=== PATIENT | female | born 1985 | race Caucasian/White ===

== ENCOUNTER 2017-11-07 19:32 | Emergency (ER) | payer BC, OTHER ==
[~2017-11-07] VITALS: Ht 165.1 cm; Wt 72.6 kg
[~2017-11-07 19:32] MED LIST: BACTRIM DS TAB1 EACH PO; GLUCOPHAGE XR750 MG PO; IBUPROFEN 600600 M1 PO; LEVOTHYROXINE0.05 MG PO; NORCO 5-325 TA1 EACH PO; SYNTHROID25 MCG PO; ZPAK PO
[2017-11-07 19:35] VITALS: BP 129/76
[2017-11-07] MEDS ORDERED: ARMOUR THYROID30 M1 PO (19:38)
[2017-11-07] MEDS ORDERED: SYNTHROID75 MCG PO (19:38)
[2017-11-07] MEDS ORDERED: NORCO 5-325 TA1 EACH PO (20:33)
== END 2017-11-07 21:11 | disposition home or self-care (01) ==
LOC: ER 19:32
DX: M79.644 Pain in right finger(s) (principal); M79.89 Other specified soft tissue disorders; E03.9 Hypothyroidism, unspecified

== ENCOUNTER 2020-07-08 21:50 | Emergency (ER) | payer OTHER ==
[~2020-07-08] VITALS: Ht 165.1 cm; Wt 81.7 kg
[~2020-07-08 21:50] MED LIST changes: +ARMOUR THYROID30 M1 PO; +SYNTHROID75 MCG PO
[2020-07-08 22:28] LABS: ABSOLUTE NEUTROPHILS 6.2 thou/uL (1.4-8.2); BASOPHILS 0.6 % (0.0-2.0); HEMATOCRIT 36.2 % (37.0-47.0); HEMOGLOBIN 11.8 gm/dL (12.0-15.0); LYMPHOCYTES 36.5 % (24.0-44.0); MCH 28.1 pg (26.0-34.0); MCHC 32.6 g/dL (28.0-37.0); MCV 86.3 fL (80.0-100.0); MONOCYTES 6.3 % (1.0-8.0); PLATELET COUNT 544 thou/uL (150-400); POLYS 53.6 % (36.0-66.0); RDW 13.1 % (10.5-14.5); WBC 11.5 thou/uL (4.0-11.0)
[2020-07-08 22:40] LABS: ANION GAP 11 mmol/L (7-16); BUN 10 mg/dL (7-18); CALCIUM 8.8 mg/dL (8.5-10.1); CHLORIDE 105 mmol/L (98-107); CO2 25 mmol/L (21-32); CREATININE 0.7 mg/dL (0.6-1.0); GLUCOSE 114 mg/dL (74-106); POTASSIUM 4.1 mmol/L (3.5-5.1); SODIUM 141 mmol/L (136-145)
[2020-07-08 22:48] LABS: MAGNESIUM 1.8 mg/dL (1.8-2.4); TROPONIN-I <0.06 ng/mL (<0.06)
[2020-07-08 22:50] LABS: URINE BILIRUBIN NEGATIVE (Negative); URINE BLOOD NEGATIVE (Negative); URINE CLARITY CLEAR; URINE COLOR YELLOW; URINE GLUCOSE-RANDOM* NEGATIVE (Negative); URINE KETONES NEGATIVE (Negative); URINE LEUKOCYTES-REFLEX NEGATIVE (Negative); URINE NITRITE-REFLEX NEGATIVE (Negative); URINE PROTEIN (DIPSTICK) NEGATIVE (Negative); URINE SPECIFIC GRAVITY >= 1.030 (1.005-1.035); URINE UROBILINOGEN 0.2 E.U./dl (0.2-1.0)
[2020-07-09 02:29] VITALS: BP 135/89
--- NOTE | 2020-07-09 07:16 | EKG ---
[address] [address] ELECTROCARDIOGRAM REPORT Name: PATTI MOSLEY [id number] Admission: 07/08/20 Attend Phys: Discharge: 07/09/20 Date of : 87 Report #: [id number] [facility] ED Test Date: 2020-07-08 Test Time: 22:07:36 Pat Name: PATTI MOSLEY Department: Room: Gender: F Supervisor Vacuum Metalizing: ELENA : 1985 Requested By: Gertrude Lott Order Number: [id number] MD: Malik Salas Measurements Intervals [place] Rate: 89 P: 32 IN: 143 QRS: 32 QRSD: 83 T: 12 QT: 357 QTc: 435 Interpretive Statements Sinus rhythm No previous ECG available for comparison Electronically Signed On 07-09-2020 7:16:04 VERTICAL ROLL OPERATOR by Malik Salas [email or web address] <ELECTRONICALLY SIGNED> By: Malik Salas MD, [facility] 07/09/20 0716 2207 06 Malik Salas MD, FACC /EPI
== END 2020-07-09 02:30 | disposition home or self-care (01) ==
LOC: ER 21:50
PROVIDERS: Emergency Medicine
DX: R00.2 Palpitations (principal); M79.602 Pain in left arm; E03.9 Hypothyroidism, unspecified; E11.9 Type 2 diabetes mellitus without complications; Z79.899 Other long term (current) drug therapy

== ENCOUNTER 2021-05-15 18:18 | Inpatient (IN) | payer OTHER ==
[~2021-05-15] VITALS: Ht 165.1 cm; Wt 74.8 kg
[2021-05-15 18:27] VITALS: BP 145/77
--- NOTE | 2021-05-15 18:27 | NUR ---
pt's mom is inpatient ER 14, pt gave permission to talk to her mother about condition and results
[2021-05-15 19:38] LABS: ABSOLUTE NEUTROPHILS 3.9 thou/uL (1.4-8.2); BASOPHILS 0.1 % (0.0-2.0); HEMATOCRIT 35.4 % (37.0-47.0); HEMOGLOBIN 11.5 gm/dL (12.0-15.0); LYMPHOCYTES 23.3 % (24.0-44.0); MCH 28.2 pg (26.0-34.0); MCHC 32.6 g/dL (28.0-37.0); MCV 86.7 fL (80.0-100.0); MONOCYTES 10.5 % (1.0-8.0); PLATELET COUNT 426 thou/uL (150-400); POLYS 66.1 % (36.0-66.0); RBC 4.08 mil/uL (4.20-5.00); RDW 13.7 % (10.5-14.5)
[2021-05-15 19:47] LABS: ANION GAP 11 mmol/L (7-16); BUN 7 mg/dL (7-18); CALCIUM 8.6 mg/dL (8.5-10.1); CHLORIDE 103 mmol/L (98-107); CO2 27 mmol/L (21-32); CREATININE 0.7 mg/dL (0.6-1.0); GLUCOSE 102 mg/dL (74-106); POTASSIUM 3.7 mmol/L (3.5-5.1); SODIUM 141 mmol/L (136-145)
[2021-05-15 19:53] LABS: ALBUMIN 3.4 g/dL (3.4-5.0); DIRECT BILIRUBIN < 0.1 mg/dL (<0.1-0.2); LIPASE 188 U/L (73-393); SGOT 32 U/L (15-37); SGPT 29 U/L (30-65); TOTAL BILIRUBIN 0.4 mg/dL (0.2-1.0)
[2021-05-16 05:24] LABS: HEMATOCRIT 29.5 % (37.0-47.0); HEMOGLOBIN 10.1 gm/dL (12.0-15.0); MCH 30.6 pg (26.0-34.0); MCHC 34.1 g/dL (28.0-37.0); MCV 89.8 fL (80.0-100.0); RBC 3.29 mil/uL (4.20-5.00); RDW 14.4 % (10.5-14.5); WBC 5.8 thou/uL (4.0-11.0)
[2021-05-16 05:29] LABS: CALCIUM 8.1 mg/dL (8.5-10.1); CREATININE 0.5 mg/dL (0.6-1.0); POTASSIUM 3.4 mmol/L (3.5-5.1)
--- NOTE | 2021-05-16 07:39 | EKG ---
[address] [address] ELECTROCARDIOGRAM REPORT Name: PATTI MOSLEY. Room #: 170-6 ADM IN M.R.#: [id number] Admission: 05/15/21 Attend Phys: Sen Jenkins MD Discharge: Date of : 87 Report #: [id number] [facility] ED Test Date: 2021-05-15 Test Time: 18:29:10 Pat Name: VIKTORIYA. MOSLEY Department: Room: 170 Gender: F Sales Compensation Analyst: RENE : 1985 Requested By: Goran Santillan Order Number: [id number] MD: Malik Salas Measurements Intervals [place] Rate: 97 P: 46 [place]: 143 QRS: 10 QRSD: 90 T: 11 QT: 348 QTc: 442 Interpretive Statements Sinus rhythm Borderline T abnormalities, anterior leads Compared to ECG 07/08/2020 22:07:36 T-wave abnormality now present Electronically Signed On 05-16-2021 7:39:23 TRUCK SERVICE TECHNICIAN by Malik Salas [email or web address] <ELECTRONICALLY SIGNED> By: Malik Salas MD, [facility] 05/16/21 0739 28 28 Malik Salas MD, [facility] /EPI
--- NOTE | 2021-05-16 17:11 | NUR ---
35 year old female presents to the ED on 05/15/21 with SOA and centralized chest pain. The patient also reports coughing with diarrhea, dry heaving and fever between 100-102. The patient was diagnosed with Covid-19 on 05/09/21 and reports being unvaccinated. The patient was admitted for COVID-19 infection complicated by pneumonitis respiratory failure/diabetes mellitus type 2/hypothyroidism we will continue approach as prescribed empiric therapy with Levaquin as well as directed therapy with Remdesiver corticosteroids and vitamins. Presently the patient is on 4 liters per NC. Per the record the patient is currently living at home and working fulltime and reportedly independent for all ADLS. Note: the patient lists her mother as her next of kin and contact who too is hospitalized in room 170-14 and number of [phone]. As care progresses PT/OT orders will need to be obtained and CM will follow for discharge needs as patient had been independent and working prior to admission.
[2021-05-16 21:45] VITALS: BP 118/68
[2021-05-17 04:04] VITALS: BP 124/78
--- NOTE | 2021-05-17 08:09 | HC ---
[facility] [place] [address] CONSULTATION Name: PATTI MOSLEY Room #: 170-17 ADM IN M.R.#: [id number] Admission: 05/15/21 Attend Phys: Flora Pickett Discharge: Date of : 87 Report #: [id number] THIS REPORT FOR: cc: Shun Abdul MD, Neal A. MD Barry,Andrez Martinez MD ~ DATE OF SERVICE: 05/16/2021 INFECTIOUS DISEASE CONSULTATION ATTENDING PHYSICIAN: Dr. Jenkins REASON FOR EVALUATION: COVID-19 infection, complicated by pneumonitis and respiratory failure. HISTORY OF PRESENT ILLNESS: Chart reviewed, the patient examined. A 35-year-old woman with known history of diabetes mellitus type 2, actually diagnosed in 2010; also hypothyroidism, who has been ill over the course of the last 10 days, generalized myalgias and fevers. Subsequently developed a nonproductive cough and progressive dyspnea over the last 48 hours prior to her evaluation. She had some GI-related complaints with diarrhea, had been diagnosed with COVID-19 infection. She is currently on supplemental oxygen 4 liters, feeling much better, although initially found to be hypoxic. Chest x-ray does show bilateral infiltrates. Coronavirus was confirmed to be positive. Procalcitonin less than 0.05. Sed rate of 3. Ferritin elevated at 361. TSH of 0.823. ALLERGIES: None known. CURRENT MEDICATIONS: Include enoxaparin, furosemide, levofloxacin, metformin XR, zinc sulfate, ascorbic acid, dexamethasone, levothyroxine, albuterol inhaler, p.r.n. analgesics and received remdesivir as well. PAST MEDICAL HISTORY: As described above, diabetes mellitus type 2 diagnosed roughly 10 years ago. Also, hypothyroidism. SOCIAL HISTORY: No ethanol, tobacco or illicit drug use. FAMILY HISTORY: Noncontributory. REVIEW OF SYSTEMS: Otherwise unremarkable. PHYSICAL EXAMINATION: GENERAL: Alert, cooperative, moderate distress, generally lucid. VITAL SIGNS: Temperature earlier 99.4, pulse 97, respirations 22, blood pressure 122/72. [facility] [address] [place] [address] CONSULTATION Name: PATTI MOSLEY Room #: 170-17 [facility] IN ..#: [id number] Admission: 05/15/21 Attend Phys: Flora Pickett Discharge: Date of : 87 Report #: [id number] SKIN: Warm, dry, no rashes. HEENT: Normocephalic. Extraocular muscles intact. Nasal cannula in place. NECK: Supple. LUNGS: A few scattered coarse breath sounds. HEART: Regular, borderline tachycardic. I do not appreciate a murmur. ABDOMEN: Mildly distended, somewhat firm, nontender. EXTREMITIES: No cyanosis. GENITOURINARY AND RECTAL: Deferred. LABORATORY DATA: CBC: White count 5.8, H and H 10.1 and 29.5, platelets of 384. TSH 0.823. Ferritin 361. Sed rate of 3. Electrolytes: Sodium 141, potassium 3.7, chloride 103, bicarbonate is 27, anion gap of 11, BUN and creatinine 7 and 0.7, glucose of 102. Lipase of 188, AST of 32. ASSESSMENT AND PLAN: COVID-19 infection, complicated by pneumonitis and respiratory failure in the setting of diabetes mellitus type 2 and hypothyroidism. We will continue empiric therapy as prescribed with antibacterial ____ for possible secondary bacterial pneumonitis as well as directed therapy with remdesivir, dexamethasone, baricitinib as well. Remains somewhat tenuous at this point, although her young age certainly is in her favor. Continue supportive care with oxygen therapy as required. <ELECTRONICALLY SIGNED> By: Andrez Gallardo MD 05/17/21 0809 [id number] [id number] Andrez Gallardo MD /nt
[2021-05-17 10:29] VITALS: BP 128/75
[2021-05-17 16:42] VITALS: BP 122/70
[2021-05-17 17:17] VITALS: BP 122/70
[2021-05-17 17:30] VITALS: BP 130/71
[2021-05-17 19:15] VITALS: BP 112/76
--- NOTE | 2021-05-17 19:35 | NUR ---
ADMISSION NOTE: PT ADMITTED TO ROOM 349, ALERT AND ORIENTED X4, DENIES ANY PAIN. PRINCIPAL EMBEDDED SOFTWARE ENGINEER PLACED, SINUS RHYTHM. ASSESSMENT AND ADMISSION COMPLETED. ON 5L OXYGEN, SOB WITH EXERTION, PRODUCTIVE COUGH, SMALL SPUTUM. ORIENTED TO ROOM. SKIN INTACT. UP TO BSC INDEPENENTLY. DENIES ANY NEEDS LURDES.
[2021-05-18 03:21] LABS: ABSOLUTE NEUTROPHILS 8.5 thou/uL (1.4-8.2); BASOPHILS 0.4 % (0.0-2.0); HEMATOCRIT 33.3 % (37.0-47.0); HEMOGLOBIN 11.2 gm/dL (12.0-15.0); LYMPHOCYTES 14.7 % (24.0-44.0); MCH 29.4 pg (26.0-34.0); MCHC 33.5 g/dL (28.0-37.0); MCV 87.8 fL (80.0-100.0); MONOCYTES 5.5 % (1.0-8.0); POLYS 79.4 % (36.0-66.0); WBC 10.7 thou/uL (4.0-11.0)
[2021-05-18 03:30] VITALS: BP 130/78
[2021-05-18 03:30] LABS: PLATELET COUNT 619 thou/uL (150-400)
--- NOTE | 2021-05-18 05:26 | NUR ---
VSS OVERNIGHT. PT HAS NO COMPLAINTS OF P/N/V. AFEBRILE. PT UP TO BSC WITH OXYGEN. CALL LIGHT WITHIN REACH. FOLLOWING COVID POC.
[2021-05-18 05:37] LABS: CALCIUM 8.9 mg/dL (8.5-10.1); CREATININE 0.7 mg/dL (0.6-1.0); DIRECT BILIRUBIN 0.1 mg/dL (<0.1-0.2); PHOSPHORUS 4.4 mg/dL (2.5-4.9); POTASSIUM 4.3 mmol/L (3.5-5.1); TOTAL BILIRUBIN 0.6 mg/dL (0.2-1.0); TOTAL PROTEIN 6.8 g/dL (6.4-8.2)
[2021-05-18 07:07] VITALS: BP 124/76
[2021-05-18 11:10] VITALS: BP 118/65
--- NOTE | 2021-05-18 13:36 | NUR ---
Received consult. ANIBAL reviewed chart and spoke with nursing and attending physician. Pt was brought to 3W from the ER last evening. Pt remains in Enhanced Isolation due to COVID. Pt is afebrile and on 6L of O2. Pt is on IV meds and Remdesivir. ANIBAL spoke with pt via phone. Introduced role of SW. Pt is alert/orientated x 4. Pt reports she lives at home with her family, who all have COVID. Pt's mother is also currently hospitalized at [facility]. Prior to admission, pt was independent with ADLs. No use of DME. No hx of HH or post-acute placement. Pt's PCP is Dr. Helena Tran. Pt is employed and requests letter to provide to her employer regarding hospitalization. SW to provide letter. ANIBAL received voice message from Fabian Nichols RN Case mgr ( ). ANIBAL left voice message for Magdalena to request list of in-network providers for DME and HH services. Plan is for pt to discharge home when medically stable. Pt may need therapy evals and rest/exercise oximetry prior to discharge. ANIBAL is following to assist as needed with discharge planning.
[2021-05-18 15:10] VITALS: BP 112/62
--- NOTE | 2021-05-18 17:55 | NUR ---
ASSUMED PATIENT CARE AT 0700. TITRATED 02 TO 4L/NC. SOB WITH EXERTIOM. DENIES PAIN. SLOLWLY TOWARDS POC GOALS.
[2021-05-18 18:47] VITALS: BP 128/78
[2021-05-19 04:04] LABS: ALBUMIN 2.9 g/dL (3.4-5.0); CALCIUM 8.7 mg/dL (8.5-10.1); CREATININE 0.7 mg/dL (0.6-1.0); DIRECT BILIRUBIN 0.1 mg/dL (<0.1-0.2); PHOSPHORUS 3.8 mg/dL (2.5-4.9); POTASSIUM 4.5 mmol/L (3.5-5.1); TOTAL BILIRUBIN 0.4 mg/dL (0.2-1.0); TOTAL PROTEIN 6.5 g/dL (6.4-8.2)
[2021-05-19 04:08] VITALS: BP 120/62
--- NOTE | 2021-05-19 06:04 | NUR ---
PT 02 WAS TITRATED DOWN TO 4L. VSS OVERNIGHT, WITH HR IN 40'S AND ASYMPTOMATIC. PT UP TO BSC WITHOUT ASSISTANCE. PT REFUSING SLIDING SCALE INSULIN. CALL LIGHT WITHIN REACH.
[2021-05-19 07:24] VITALS: BP 119/70
--- NOTE | 2021-05-19 13:42 | NUR ---
ANIBAL reviewed chart and spoke with nursing and attending physician. Pt remains in Enhanced Isolation due to COVID. Pt is afebrile and on 3L of O2. Pt is on IV abx and COVID meds. Pt is slowly progressing towards goals for discharge. Pt to finish course of Remdesivir tomorrow. Pt will need a rest/exercise oximetry ordered to determine home O2 needs. ANIBAL provided pt's nurse with letter for pt to provide to her employer regarding hospitalization. Plan is for pt to discharge home when medically stable. ANIBAL is following to assist as needed with discharge planning.
[2021-05-19 15:30] VITALS: BP 119/69
--- NOTE | 2021-05-19 18:30 | NUR ---
progressing towards poc goals. titrated 02 to 2l.
[2021-05-19 19:40] VITALS: BP 119/66
[2021-05-20 03:25] VITALS: BP 116/70
--- NOTE | 2021-05-20 03:42 | NUR ---
PT MAKING SLOW PROGRESS TOWARDS GOALS. ON O2 AT 3L PER NC OVERNIGHT WITH SPO2 AT 96-98% DURING SPOT CHECKS. DENIES ANY SOA WHILE AT REST BUT STATES SHE STILL FEELS VERY SOA WITH JUST AMBULATING SENIOR CARE TO THE BATHROOM DOOR AND BACK TO BED. AFEBRILE OVERNIGHT.
--- NOTE | 2021-05-20 05:40 | NUR ---
PTMAKING SLOW PROGRESS TOWARDS GOALS. INITIALLY ON OPTIFLO AT 55L/80% FIO2. LUNGS CTA UPPER LOBES, COARSE BL LOWER LOBES. PT STATING THAT HE FELT LIKE TODAY WAS THE DAY WHERE HE HAS STARTED TO HAVE AN EASIER TIME BREATHING. THIS AM, LUNGS DIMINISHED THROUGHOUT. OPTIFLO AT 50L/80% FIO2. CONTINUE TO MONITOR.
[2021-05-20 06:23] LABS: ALBUMIN 2.8 g/dL (3.4-5.0); ANION GAP 11 mmol/L (7-16); BUN 27 mg/dL (7-18); CALCIUM 8.8 mg/dL (8.5-10.1); CHLORIDE 103 mmol/L (98-107); CO2 26 mmol/L (21-32); CREATININE 0.7 mg/dL (0.6-1.0); DIRECT BILIRUBIN < 0.1 mg/dL (<0.1-0.2); GLUCOSE 121 mg/dL (74-106); PHOSPHORUS 3.7 mg/dL (2.5-4.9); POTASSIUM 4.3 mmol/L (3.5-5.1); SGOT 21 U/L (15-37); SGPT 72 U/L (30-65); SODIUM 140 mmol/L (136-145); TOTAL BILIRUBIN 0.4 mg/dL (0.2-1.0); TOTAL PROTEIN 6.7 g/dL (6.4-8.2)
[2021-05-20 07:21] VITALS: BP 126/81
[2021-05-20] MEDS ORDERED: DEXAMETHASONE 44 M1 PO (12:18)
[2021-05-20] MEDS ORDERED: TESSALON PERLE100 MG PO (12:19)
[2021-05-20] MEDS ORDERED: PROAIR HFA8.5 GM INH (12:19)
--- NOTE | 2021-05-20 12:19 | NUR ---
DISCHARGE NOTE: ANIBAL reviewed chart and spoke with nursing and attending physician. Pt remains in Enhanced Isolation due to COVID. Pt is medically stable to discharge home today. Rest/exercise oximetry completed today. Pt does not need home O2. SW spoke with pt via phone to discuss discharge plan. Pt is aware and in agreement with plan. Pt confirmed she received documentation to provide to her employer regarding her hospitalization. Pt will need documentation from the physician regarding work restrications and when she can return to work. ANIBAL notified attending physician. ANIBAL spoke with Magdalena at [facility] regarding pt's discharge. [facility] are in-network providers for DME/HH. Pt declined offer to arrange HH. Pt's mother is also being discharged home today. Pt states she drove them to the hospital and will drive them home. No additional SW needs identified at this time. SW is available to assist should needs arise.
[2021-05-20 12:29] VITALS: BP 126/81
--- NOTE | 2021-05-20 14:13 | NUR ---
PATIENT TOLERATED ON RA. NO O2 NEED. DC TO HOME.
== END 2021-05-20 15:00 | disposition home or self-care (01) | DRG 177 ==
LOC: ER 18:18 → 3W 22:03 → EROBS 22:03 → 3W 05-17 17:17
PROVIDERS: Nurse Practitioner Family; Specialist; Student in an Organized Health Care Education/Training Program; ADMIT Hospitalist; ATTEND Hospitalist
PROC: XW033E5 Introduction of Remdesivir Anti-infective into Peripheral Vein, Percutaneous Approach, New Technology Group 5 (ICD-10-PCS; principal; 2021-05-16)
DX: U07.1 COVID-19 (principal); J12.82 Pneumonia due to coronavirus disease 2019; J96.01 Acute respiratory failure with hypoxia; E03.9 Hypothyroidism, unspecified; E11.9 Type 2 diabetes mellitus without complications; Z80.0 Family history of malignant neoplasm of digestive organs; Z79.899 Other long term (current) drug therapy
CPT/HCPCS: 10879

== ENCOUNTER 2021-05-31 04:12 | Emergency (ER) | payer OTHER ==
[~2021-05-31] VITALS: Ht 165.1 cm; Wt 72.6 kg
[~2021-05-31 04:12] MED LIST changes: +DEXAMETHASONE 44 M1 PO; +PROAIR HFA8.5 GM INH; +TESSALON PERLE100 MG PO
[2021-05-31 05:01] LABS: ABSOLUTE NEUTROPHILS 8.1 thou/uL (1.4-8.2); BASOPHILS 0.5 % (0.0-2.0); EOSINOPHILS 0.8 % (0.0-3.0); HEMATOCRIT 31.4 % (37.0-47.0); HEMOGLOBIN 10.3 gm/dL (12.0-15.0); LYMPHOCYTES 28.2 % (24.0-44.0); MCH 29.4 pg (26.0-34.0); MCHC 32.8 g/dL (28.0-37.0); MCV 89.8 fL (80.0-100.0); MONOCYTES 7.3 % (1.0-8.0); PLATELET COUNT 481 thou/uL (150-400); POLYS 63.2 % (36.0-66.0); RBC 3.49 mil/uL (4.20-5.00); RDW 15.3 % (10.5-14.5); WBC 12.9 thou/uL (4.0-11.0)
[2021-05-31 05:04] LABS: CALCIUM 8.7 mg/dL (8.5-10.1); CREATININE 0.6 mg/dL (0.6-1.0); POTASSIUM 3.8 mmol/L (3.5-5.1)
[2021-05-31 05:10] LABS: TOTAL BILIRUBIN 0.2 mg/dL (0.2-1.0); TOTAL PROTEIN 6.5 g/dL (6.4-8.2)
[2021-05-31] MEDS ORDERED: NORCO5 PO (06:34)
[2021-05-31 06:55] VITALS: BP 112/57
== END 2021-05-31 07:01 | disposition home or self-care (01) ==
LOC: ER 04:12
PROVIDERS: Emergency Medicine
DX: K80.20 Calculus of gallbladder without cholecystitis without obstruction (principal); E03.9 Hypothyroidism, unspecified; Z79.899 Other long term (current) drug therapy